=== PATIENT | female | born 2005 | race African-American/Black ===

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

== ENCOUNTER 2024-06-06 22:06 | Emergency (ER) | payer OTHER | END 2024-06-06 23:32 | disposition left against medical advice (07) | LOC: CSHERS 22:06 | DX: Z53.21 Procedure and treatment not carried out due to patient leaving prior to being seen by health care provider (principal) ==